=== PATIENT | female | born 2000 ===

== ENCOUNTER 2021-12-02 19:04 | Emergency (ER) | payer SELFPAY ==
[2021-12-02 20:51] VITALS: BP 121/69
[2021-12-02 21:38] LABS: Bilirubin,Urine NEG (Negative); Blood,Urine NEG (Negative); Color,Urine Yellow (Yellow); Hyaline Casts,Urine 2 /LPF; Mucus,Urine 3+ /HPF; Protein,Urine <15 mg/dL mg/dL (Negative); Urobilinogen,Urine < 2.0 mg/dL (<2.0)
[2021-12-02 21:44] LABS: Basophils % (Auto) 0.7 % (0.0-1.8); Eosinophils # (Auto) 0.1 K/mm3 (0.0-0.4); Eosinophils % (Auto) 1.4 % (0.0-4.3); Hematocrit 36.2 % (30.3-42.9); Hemoglobin 11.6 gm/dl (10.1-14.3); Lymphocytes # (Auto) 1.8 K/mm3 (1.2-5.4); Lymphocytes % (Auto) 32.6 % (13.4-35.0); Mean Corpuscular HGB Conc 32 % (30-34); Mean Corpuscular Volume 86 fl (79-97); Monocytes # (Auto) 0.4 K/mm3 (0.0-0.8); Monocytes % (Auto) 7.9 % (0.0-7.3); Platelet Count 234 K/mm3 (140-440)
[2021-12-02 22:58] LABS: Alanine Aminotransferase 6 units/L (7-56); Albumin 4.4 g/dL (3.9-5); Blood Urea Nitrogen 9 mg/dL (7-17); Calcium 9.6 mg/dL (8.4-10.2); Hemolysis Index 6
[2021-12-02 23:12] LABS: BUN/Creatinine Ratio 18
== END 2021-12-03 01:58 | disposition left against medical advice (07) ==
LOC: ED 19:04
DX: R10.2 Pelvic and perineal pain (principal); M54.9 Dorsalgia, unspecified; R10.9 Unspecified abdominal pain; Z53.21 Procedure and treatment not carried out due to patient leaving prior to being seen by health care provider
CPT/HCPCS: 36415; 80053; 81001; 84703; 85025; 87210

== ENCOUNTER 2021-12-03 09:28 | Emergency (ER) | payer SELFPAY ==
[2021-12-03 10:30] VITALS: BP 105/71
== END 2021-12-03 16:04 | disposition left against medical advice (07) ==
LOC: ED 09:28
DX: R10.2 Pelvic and perineal pain (principal); Z53.21 Procedure and treatment not carried out due to patient leaving prior to being seen by health care provider